=== PATIENT | male | born 1960 | race Caucasian/White ===

== ENCOUNTER 2023-02-20 07:53 | Outpatient (OUT) | payer BC, SELFPAY ==
[2023-02-20 10:02] LABS: Prostate Specific Antigen Dx 7.49 ng/mL (<=4.00)
== END 2023-02-20 07:54 | disposition home or self-care (01) ==
LOC: LAB 07:56
PROVIDERS: PCP Internal Medicine; Visit Provider Urology
DX: R97.20 Elevated prostate specific antigen [PSA] (principal)
CPT/HCPCS: 36415; 84153

== ENCOUNTER 2023-02-22 08:00 | Outpatient (OUT) | payer BC, SELFPAY | END 2023-02-22 08:01 | disposition home or self-care (01) | LOC: VACCLI 04-13 08:54 | PROVIDERS: PCP Internal Medicine; Visit Provider Internal Medicine | DX: Z23 Encounter for immunization (principal) ==

== ENCOUNTER 2023-04-25 07:30 | Outpatient (OUT) | payer BC, SELFPAY ==
[2023-04-25 07:52] LABS: Basophils Absolute Auto 0.1 10^3/uL (0.0-0.1); Eosinophils Absolute Auto 0.2 10^3/uL (0.0-0.7); Eosinophils Percent Auto 3.5 % (0.9-7.0); Hematocrit 44.1 % (42.0-54.0); Hemoglobin 14.2 g/dL (14.0-18.0); Immature Granulocytes Abs Auto 0.02 10^3/uL (0.00-0.03); Immature Granulocytes Pct Auto 0.3 % (0.0-0.5); Lymphocytes Absolute Auto 1.5 10^3/uL (1.2-3.8); Mean Corpuscular HGB Conc 32.2 g/dL (29.9-35.2); Mean Corpuscular Hemoglobin 29.6 pg (25.9-34.0); Mean Corpuscular Volume 91.9 fL (80.0-94.0); Mean Platelet Volume 9.9 fL (9.5-13.5); Monocytes Absolute Auto 0.7 10^3/uL (0.3-0.8); Monocytes Percent Auto 10.8 % (1.7-12.0); Neutrophils Absolute Auto 3.9 10^3/uL (1.4-6.5); Neutrophils Percent Auto 61.4 % (43.0-75.0); Platelet Count 282 10^3/uL (150-450); Red Cell Distribution Width 13.1 % (11.0-15.0); White Blood Count 6.3 10^3/uL (4.0-11.0)
[2023-04-25 08:47] LABS: Alanine Aminotransferase 29 U/L (16-63); Albumin Globulin Ratio 1.1; Albumin Level 3.7 g/dL (3.4-5.0); Alkaline Phosphatase 72 U/L (46-116); Anion Gap 11.3; Aspartate Amino Transferase 18 U/L (15-37); BUN Creatinine Ratio 21.6; Bilirubin Total 0.6 mg/dL (0.2-1.0); Calcium 8.8 mg/dL (8.5-10.1); Carbon Dioxide 32.1 mmol/L (21.0-32.0); Chloride 104 mmol/L (98-107); Chol HDL Ratio 3.1; Cholesterol 163 mg/dL (<=200); Estimated GFR (African America >60 (>=60); Estimated GFR (Non-African Ame >60 (>=60); Globulin 3.5 g/dL; Glucose 96 mg/dL (74-106); HDL Cholesterol 53 mg/dL (40-60); Potassium 4.4 mmol/L (3.5-5.1); Sodium 143 mmol/L (136-145); Total Protein 7.2 g/dL (6.4-8.2); Triglycerides 110 mg/dL (<=150)
[2023-04-25 08:53] LABS: Prostate Specific Antigen Scrn 7.69 ng/mL (<=4.00)
[2023-04-25 09:07] LABS: Estimated Average Glucose 111 mg/dL; Glycohemoglobin A1C 5.5 % (4.5-6.2)
== END 2023-04-25 07:31 | disposition home or self-care (01) ==
LOC: LAB 07:30
PROVIDERS: PCP Internal Medicine; Visit Provider Internal Medicine
DX: Z00.00 Encounter for general adult medical examination without abnormal findings (principal)
CPT/HCPCS: 36415; 80053; 80061; 83036; 84443; 85025; G0103

== ENCOUNTER 2023-06-20 06:54 | Outpatient (OUT) | payer BC, SELFPAY ==
--- OUTSIDE RECORDS SUMMARY | 2023-06-20 06:56 | XMS_ITS | CCD ---
Author Name Unknown Address [address] [place] [address] Organization [facility] Team Providers Care On Air Host Name Role Phone AVERY BARROSO Primary Care Physician MARIO, DR WOOD Admitting Unavailable MARIO, DR WOOD Attending Unavailable DHARMESH, DR MALDONADO Primary Care Unavailable MARIO, DR WOOD Consulting Unavailable DHARMESH, DR MALDONADO Admitting Unavailable BALL, DR MALDONADO Attending Unavailable BALL, DR MALDONADO Primary Care Unavailable DHARMESH, DR MALDONADO Consulting Unavailable ZHENG, DR DAVIS Admitting Unavailable HOY, DR DAVIS Attending Unavailable DHARMESH, DR MALDONADO Primary Care Unavailable ZHENG, DR DAVIS Consulting Unavailable BALL, DR MALDONADO Primary Care Unavailable KATJAE, NOVA Mora Admitting Unavailable KATJAE, NOVA Mora Attending Unavailable ZEPEDA, DR ARON Montgomery Consulting Unavailable ADORNO, DR LEAVITT Consulting Unavailable LETI, HOSSAM Consulting Unavailable DHARMESH, DR MALDONADO Admitting Unavailable DHARMESH, DR MALDONADO Attending Unavailable BALL, DR MALDONADO Primary Care Unavailable MARIO, DR WOOD Admitting Unavailable COFFEY, DR WOOD Attending Unavailable BALL, DR MALDONADO Primary Care Unavailable MARIO, DR WOOD Consulting Unavailable MD Manas Coffey Attending Provider [phone] DO Avery Barroso Primary Care Provider Manas Coffey Admgarrett Unavailable Manas Coffey Attending Unavailable Dharmesh, Avery Primary Care Unavailable Avery Barroso Unavailable Manas COFFEY Attending Unavailable MARIO, Manas Montgomery Attending Unavailable Allergies Allergy Classification Reported Allergen(s) Allergy Type Date of Onset Reaction(s) Facility (1 source) Unable to Assess Drug allergy (disorder) 2 [facility] Repository (1 source) No Known Medication Allergies; Translations: [No Known Medication Allergies] Propensity to adverse reactions (disorder) [facility] Repository (1 source) patient allergy list reviewed by nurse or physicia Propensity to adverse reactions 7 Comment:Done [employer] Other Medications Current Medications Medication Drug Class(es) Dates Sig (Normalized) Sig (Original) atorvastatin 20 mg oral tablet (9 sources) HMG-CoA Reductase Inhibitor Start: 07-10-2022 take 1 tablet by mouth once daily in the evening Atorvastatin Calcium 20 MG 1 tablet Orally Once a day, in evening Jun, Active Start: 07-29-2020 atorvastatin 2 0 mg Tab 20 mg = 1 tab(s), Oral, Refills(s) 0 Start Date: 07/29/20 Status: Ordered omeprazole 40 mg delayed release oral capsule (8 sources) Proton Pump Inhibitor Start: 06-12-2022 take 1 capsule by mouth once daily Completed/Discontinued Medications Medication Drug Class(es) Dates Sig (Normalized) Sig (Original) 24 hr alfuzosin hydrochloride 10 mg extended release oral tablet (9 sources) alpha-Adrenergic Ashish Start: 07-18-2022 take 1 tablet by mouth every twenty-four hours Alfuzosin HCl ER 10 MG 1 tablet immediately after the same meal Orally Once a day for 30 days Jun, Not-Taking/PRN Start: 02-13-2022 take 1 tablet by aristides th once daily alfuzosin 10 mg ER Tab 10 mg = 1 tab(s), Oral, Daily, # 30 tab(s), Refills(s) 11, Pharmacy: [facility]/pharmacy #[id number], 180, cm, 02/13/22 15:01:00 EDT, Height/Length Dosing, 97.2, kg, 02/13/22 15:01:00 EDT, Weight Dosing Start Date: 02/13/22 Status: Ordered Problems Active Problems Problem Classification Problem Date Documented Da te Episodic/Chronic Abdominal pain (4 sources) Unspecified abdominal pain; Translations: [UNSPECIFIED ABDOMINAL PAIN] Onset: 01-13-2022 Episodic Calculus of urinary tract (14 sources) Kidney stone; Translations: [Calculus of kidney] Onset: 01-15-2022 Episodic Disorders of lipid metabolism (20 sources) Hyperlipidemia; Translations: [Hypercholesterolem ia] Onset: 02-06-2014 07-29-2020 Chronic Genitourinary symptoms and ill-defined conditions (2 sources) Nocturia; Translations: [Dysuria] Episodic Hyperplasia of prostate (13 sources) Benign prostatic hypertrophy without outflow obstruction; Translations: [Benign prostatic hyperplasia without lower urinary tract symptoms] Onset: 08-25-2021 Chronic Inflammatory conditions of male genital organs (3 sources) Chronic prostatitis; Translations: [Chronic prostatitis] Onset: 02-13-2022 Chronic Other circulatory disease (1 source) Elevated blood-pressure reading, without diagnosis of hypertension Episodic Other ear and sense organ disorders (1 source) Impacted cerumen; Translations: [Impacted cerumen, bilateral] Episodic Other nutritional; endocrine; and metabolic disorders (1 source) Overweight; Translations: [Overweight] Episodic Other nutritional; endocrine; and metabolic disorders (1 source) Overweight Episodic Other screening for suspected conditions (not mental disorders or infectious disease) (19 sources) Raised prostate specific antigen; Translations: [Elevated prostate specific antigen [PSA]] Onset: 02-10-2022 Episodic Residual codes; unclassified (5 sources) Obstructive sleep apnea (adult) (pediatric); Translations: [OBSTRUCTIVE SLEEP APNEA] Onset: 03-28-2021 Chronic Residual codes; unclassified (9 sources) Obstructive sleep apnea syndrome; Translations: [Obstructive sleep apnea (adult) (pediatric)] Chronic Spondylosis; intervertebral disc disorders; other back problems (9 sources) Low back pain; Translations: [Low back pain] Episodic Thyroid disorders (1 source) Toxic diffuse goiter with no crisis; Translations: [Toxic diffuse goiter without mention of thyrotoxic crisis or storm] Onset: 02-06-2014 Chronic Past or Other Problems Problem Classification Problem Date Documented Da te Episodic/Chronic Acute bronchitis (1 source) Acute bronchitis; Translations: [Acute bronchitis, unspecified] Onset: 03-22-2015 Episodic Bacterial infection; unspecified site (1 source) Bacterial infectious disease; Translations: [Bacterial infection, unspecified, in conditions classified elsewhere and of unspecified site] Onset: 05-08-2016 Episodic Other nutritional; endocrine; and metabolic disorders (1 source) Body mass index 25-29 - overweight; Translations: [Body mass index 27.0-27.9, adult] Onset: 03-26-2017 Episodic Other upper respiratory infections (2 sources) Acute pharyngitis; Translations: [Acute pharyngitis, unspecified] Onset: 05-08-2016 Episodic Unclassified (1 source) Long-term current use of drug therapy; Translations: [Long-term (current) use of other medications] Onset: 04-06-2018 Viral infection (1 source) Herpangina; Translations: [Enteroviral vesicular pharyngitis] Onset: 03-22-2015 Episodic Results Test Name Value Interpretation Reference Range Facility Ambulatory Visit Summaryon 1 05-02-2022 Ambulatory Visit Summary JV BURDICK :1960 Visit Date:03/02/2023 Ambulatory Visit Instructions Your Diagnosis BPH (benign prostatic hyperplasia) Elevated PSA Chronic prostatitis Ureteral stone with hydronephrosis Tests Performed Urnls Dip Stick Auto w/o Microscopy POC 20065 Your Care Team Attending Physician - Manas COFFEY MD Primary Care Physician - AVERY BARROSO DO This Is Your Medications List alfuzosin (alfuzosin 10 mg ER Tab) Contact prescribing physician if questions or concerns atorvastatin (atorvastatin 20 mg Tab) Procedures Performed Transrectal needle biopsy of prostate (08/11/2020). Discharge Vitals Heart Rate (Peripheral) 71 Respiratory Rate 16 Blood Pressure 134/88 Height 180 cm Height 71 in Weight 90 kg Weight 198 lb BMI 27.78 What to do next Scheduled Follow-Up Appointments Sunday 8:00 AM EST With: Manas COFFEY MD Where: [facility] Patient Educationon 03-02-20 23 Patient Education Oncology Prostate Cancer Screening Prostate cancer screening is testing that is done to check for the presence of prostate cancer in men. The prostate gland is a walnut-sized gland that is located below the bladder and in front of the rectum in males. The function of the prostate is to add fluid to semen during ejaculation. Prostate cancer is one of the most common types of cancer in men. Who should have prostate cancer screening? Screening recommendations vary based on age and other risk factors, as well as between the professional organizations who make the recommendations. In general, screening is recommended if: ? You are age 50 to 70 and have an average risk for prostate cancer. You should talk with your health care provider about your need for screening and how often screening should be done. Because most prostate cancers are slow growing and will not cause , screening in this age group is generally reserved for men who have a 10- to 15-year life expectancy. ? You are younger than age 50, and you have these risk factors: ? Having a father, brother, or uncle who has been diagnosed with prostate cancer. The risk is higher if your family member's cancer occurred at an early age or if you have multiple family members with prostate cancer at an early age. ? Being a male who is Black or is of Real or sub-Saharan descent. In general, screening is not recommended if: ? You are younger than age 40. ? You are between the ages of 40 and 49 and you have no risk factors. ? You are 70 years of age or older. At this age, the risks that screening can cause are greater than the benefits that it may provide. If you are at high risk for prostate cancer, your health care provider may recommend that you have screenings more often or that you start screening at a younger age. How is screening for prostate cancer done? The recommended prostate cancer screening test is a blood test called the prostate-specific antigen (PSA) test. PSA is a protein that is made in the prostate. As you age, your prostate naturally produces more PSA. Abnormally high PSA levels may be caused by: ? Prostate cancer. ? An enlarged prostate that is not caused by cancer (benign prostatic hyperplasia, or BPH). This condition is very common in older men. ? A prostate gland infection (prostatitis) or urinary tract infection. ? Certain medicines such as male hormones (like testosterone) or other medicines that raise testosterone levels. A rectal exam may be done as part of prostate cancer screening to help provide information about the size of your prostate gland. When a rectal exam is performed, it should be done after the PSA level is drawn to avoid any effect on the results. Depending on the PSA results, you may need more tests, such as: ? A physical exam to check the size of your prostate gland, if not done as part of screening. ? Blood and imaging tests. ? A procedure to remove tissue samples from your prostate gland for testing (biopsy). This is the only way to know for certain if you have prostate cancer. What are the benefits of prostate cancer screening? ? Screening can help to identify cancer at an early stage, before symptoms start and when the cancer can be treated more easily. ? There is a small chance that screening may lower your risk of dying from prostate cancer. The chance is small because prostate cancer is a slow-growing cancer, and most men with prostate cancer from a different cause. What are the risks of prostate cancer screening? The main risk of prostate cancer screening is diagnosing and treating prostate cancer that would never have caused any symptoms or problems. This is called overdiagnosisand overtreatment. PSA screening cannot tell you if your PSA is high due to cancer or a different cause. A prostate biopsy is the only procedure to diagnose prostate cancer. Even the results of a biopsy may not tell you if your cancer needs to be treated. Slow-growing prostate cancer may not need any treatment other than monitoring, so diagnosing and treating it may cause unnecessary stress or other side effects. Questions to ask your health care provider ? When should I start prostate cancer screening? ? What is my risk for prostate cancer? ? How often do I need screening? ? What type of screening tests do I need? ? How do I get my test results? ? What do my results mean? ? Do I need treatment? Where to find more information ? The [place] [employer]: www.cancer.org ? [place] [employer]: www.auanet.org Contact a health care provider if: ? You have difficulty urinating. ? You have pain when you urinate or ejaculate. ? You have blood in your urine or semen. ? You have pain in your back or in the area of your prostate. Summary ? Prostate cancer is a common type of cancer in men. The prostate gland is located below the bladder and in front of the rectum. This gland adds flu (more content not included)... Normal [facility] Urology Office/Clinic Noteon 03-02-2023 Urology Office/Clinic Note Chief Complaint 1yr PSA HPI Staff 1 year f/u with PSA. Previous dx of elevated PSA, BPH, chronic prostatitis and kidney stone. Current PSA done 02/20/23 is 7.49 and previous done 02/10/22 was 7.95. No longer taking Alfuzosin 10mg ER, stopped in October, states PRW only had him on it temporarily. S/P NEG TRUS/Bx 08/11/20 MRI Prostate 03/13/22- pt called with results Denies kidney stone symptoms. Denies all urinary concerns at this time. History of Present Illness Tests reviewed: Reviewed UA and PSA. I have reviewed the previous health record information and history for this patient from Dr. Coffey. I have reviewed and verified the staff HPI to be accurate for this encounter. There have been no associated fever, chills, flank pain, or blood in the urine. Denies any urinary infections since last encounter. Review of Systems PHQ Score Initial Depression Screen Score: 0 ROS - Provider Constitutional: denies weight loss, denies hot flashes. Eyes: denies eye problems. Gastrointestinal: denies nausea, denies vomiting. Cardiovascular: denies chest pain or angina. Integumentary: no dryness Musculoskeletal: denies musculoskeletal symptoms. ENMT: denies otolaryngeal symptoms. Respiratory: no shortness of breath. Heme/Lymph: denies easy bleeding tendency, denies easy bruising tendency. Psychiatric: no confusion, no anxiety. Genitourinary: See HPI. Physical Exam Vitals & Measurements HR: 71(Peripheral) RR: 16 BP: 134/88 HT: 71 in HT: 180 cm WT: 90 kg WT: 198 lb BMI: 27.78 General Appearance: alert, no distress, well nourished, well developed male. Genitourinary: normal scrotum, normal testes, normal urethra, normal epididymis, normal vas deferens/spermatic cord. Flank Pain: none. Bladder: nonpalpable. Prostate: normal prostate, estimated weight 35 gms, no hard nodule observed. Assessment/Plan 1. BPH (benign prostatic hyperplasia) (N40.0: Benign prostatic hyperplasia without lower urinary tract symptoms) MRI of prostate - prostate volume 84 mL Pt stopped taking Alfuzosin 10mg ER qd, pt states he was only on it temporarily. No urinary concerns. Good stream and no issues with emptying. 2. Elevated PSA (R97.20: Elevated prostate specific antigen [PSA]) PSA: 07/01/20 - 5.3 & 27% 02/10/22 - 7.95 02/20/23 - 7.49 S/p TRUS/bx neg 08/11/20 MRI of prostate 03/13/22 BPH changes. Neg for malignancy. LAZARO today: 35g, benign -Cont to monitor PSA -PSA due in 1 year 3. Chronic prostatitis (N41.1: Chronic prostatitis) UA today trace-intact blood. No recent infections. Asx. Call w/ symptoms. Follow-up With When Contact Information MARIO SPENCER, Manas Montgomery, URL [address] [place] [address]- Additional Instructions: 1 year w/ PSA Patient Education Prostate Cancer Screening I, Lynda Casas, personally scribed for Dr. Coffey on 03/02/2023 08:55:51. . Documentation recorded by the scribe, Lynda Casas, accurately reflects the services(s) I performed and decisions made by me. Authenticated by Dr. Coffey on 03/02/2023 08:57:56. Problem List/Past Medical History Ongoing BPH (benign prostatic hyperplasia) Chronic prostatitis Elevated PSA History of kidney stones Hyperlipidemia Kidney stone Ureteral stone with hydronephrosis Historical No qualifying data Procedure/Surgical History Transrectal needle biopsy of prostate (08/11/2020). Medications alfuzosin 10 mg ER Tab, 10 mg= 1 tab(s), Oral, Daily, 11 refills, Not taking: Hasn't taken since October atorvastatin 20 mg Tab, 20 mg= 1 tab(s), Oral Allergies No Known Allergies No Known Medication Allergies Social History Tobacco Never (less than 100 in lifetime) Tobacco Use:. Never Smokeless Tobacco Use:. Household tobacco concerns: No. Yes, 03/02/2023 Family History Heart disease: Father. Immunizations Vaccine Date Status SARS-CoV-2 (COVID-19) mRNA-1273 vaccine 02/28/2022 Recorded SARS-CoV-2 (COVID-19) mRNA-1273 vaccine 02/18/2021 Recorded SARS-CoV-2 (COVID-19) mRNA-1273 vaccine 05/26/2020 Recorded SARS-CoV-2 (COVID-19) mRNA-1273 vaccine 04/28/2020 Recorded Lab Results Ambulatory Point of Care Results Bilirubin Urine Dipstick: Negative (03/02/23 08:26:00) Blood Urine Dipstick: Trace-intact (03/02/23 08:26:00) Glucose Urine Dipstick: Negative (03/02/23 08:26:00) Ketones Urine Dipstick: Negative (03/02/23 08:26:00) Leukocytes Urine Dipstick: Negative (03/02/23 08:26:00) Nitrite Urine Dipstick: Negative (03/02/23 08:26:00) Protein Urine Dipstick: Negative (03/02/23 08:26:00) Specific [place] Urine Dipstick: 1.020 (03/02/23 08:26:00) Urine Appearance Urine Dipstick: Clear (03/02/23 08:26:00) Urine Color Urine Dipstick: Yellow (03/02/23 08:26:00) Urobilinogen Urine Dipstick: Normal 0.2-1 EU/dl (03/02/23 08:26:00) pH Urine Dipstick: 7 (03/02/23 08:26:00) Normal [facility] Comment on above: Result Comment: Elec tronically Signed By: MARIO SPENCER, Manas Montgomery\.br\Date and Time Signed: 03/02/23 08:58 EDT\.br\Electronically Co-Signed By: Lynda Casas\.br\Date and Time Co-Signed: 03/02/23 08:56 EDT Lab Reportson 02-21-2023 Lab Reports [id number] #1.00TIFF Normal [facility] RAD - MRI Reporton RAD - MRI Report [id number] #1.00CD:127 Normal [facility] MR prostate wo/w conon 03-19 MR prostate wo/w con [facility] [place] [address] MRI Report Signed Patient: Jv Burdick MR#: [id number] : 1960 Acct:[id number] Age/Sex: 61 / M ADM Date: 03/13/22 Loc: MR Room: Type: [facility] Attending Dr: Manas Coffey MD Copies to: Manas Coffey MD Ordering Provider: Manas Coffey MD Date of Service: 03/13/22 MR/MR prostate wo/w con: R97.20 EXAMINATION: MR prostate wo/w con HISTORY: Elevated PSA. COMPARISON: NONE TECHNIQUE: Multiparametric imaging of the prostate gland was performed with IV contrast. FINDINGS: Prostate Dimensions: 6.1 x 4.8 x 5.5 cm Prostate Volume: 84 mL Peripheral Zone: Heterogenous inT2 signal suggestive of prior prostatitis. No suspicious T2 or ADC map abnormality is identified to suggest prostate malignancy. Central/Transitional Zone: BPH changes. Seminal Vesicles: Unremarkable Neurovascular bundles: Unremarkable. Lymphadenopathy: No evidence of lymphadenopathy. Bladder: No focal lesion. Bowel: The visualized bowel is without acute abnormality. Peritoneal Cavity: No free fluid. Bones: No suspicious bony lesion. MR/MR prostate wo/w con IMPRESSION: No MRI evidence of prostate malignancy. BPH changes. Impression dictated by: Ladarius Robertson Jr., D.OErrol03/19/2022 8:25 PM Dictation Location: [place] [address] Transcribed By: [facility] 03/19/222024 Dictated By: Ladarius Robertson Jr, DO 03/19/222018 Signed By: 03/19/222024 Normal [facility] Creatinine (Bld) [Mass/Vol]O rdered By: Manas Coffey on 03-13-2022 Creatinine [Mass/Vol] 0.9 mg/dL 0.6-1.3 [facility] Comment on above: ER/ESD physician is notified/shown all ISTAT results.Critical values may be confirmed by laboratory testing ifdeemed necessary by ER attending doctor. ISTAT XRmarline CREon 03-13-2022 Creatinine [Mass/Vol] 0.9 mg/dL Normal 0.6-1.3 [facility] Comment on above: Result Comment: ER/E SD physician is notified/shown all ISTAT results. Critical values may be confirmed by laboratory testing if deemed necessary by ER attending doctor. Performed By: #### I SCRE #### [address] Point of Care testing , ISTAT GFR ( > 60 Normal [facility] Comment on above: Result Comment: GFR estimated reference range: According to KDOQI guidelines, <60 ml/min/1.73m2 is sufficient to diagnose a patient with chronic kidney disease. PERFORMED BY: [place] [address] PATHOLOGIST ENFORCEMENT MANAGER LENI ARE M.D. Performed By: #### I SCRE #### [address] [place] [address] [facility] Point of Care testing , ISTAT GFR (Non- Am > 60 Normal [facility] Comment on above: Performed By: #### I SCRE #### [facility] [address] [place] [id number] [facility] Point of Care testing , Lab Reportson 03-13-2022 Lab Reports [id number] #1.00CD:127 Normal [facility] No Panel InformationOrdered By: Manas Coffey on 03-13-2022 POC Estimated GFR > 60 [facility] Comment on above: GFR estimated refere nce range: According to KDOQI guidelines, <60 ml/min/1.73m2 is sufficient to diagnose a patient with chronic kidney disease. POC Estimated GFR Non- Amer > 60 [facility] CBC AUTO DIFFon 03-07-2022 BASO # 0.1 103/ul Normal 0.0-0.1 [facility] Comment on above: Performed By: #### C BC #### [facility] [address] [place] [address] Dr. Cherie Nicholas Basophils/100 WBC (Bld) 0.8 % Normal 0.2-2.0 [facility] Comment on above: Performed By: #### C BC #### [facility] [address] [place] [address] Dr. Cherie Nicholas EO # 0.1 103/ul Normal 0.0-0.7 [facility] Comment on above: Performed By: #### C BC #### [facility] [address] [place] [address] Dr. Cherie Nicholas Eosinophils/100 WBC (Bld) 2.3 % Normal 0.9-7.0 [facility] Comment on above: Performed By: #### C BC #### [facility] [address] [place] [address] Dr. Cherie Nicholas Erythrocyte distribution width (RBC) [Ratio] 13.5 % Normal 11.0-15.0 [facility] Comment on above: Performed By: #### C BC #### [facility] [address] [place] [address] Dr. Cherie Nicholas Hematocrit (Bld) [Volume fraction] 43.3 % Normal 42.0-54.0 [facility] Comment on above: Performed By: #### C BC #### [facility] [address] [place] [address] Dr. Cherie Nicholas Hemoglobin (Bld) [Mass/Vol] 14.4 g/dL Normal 14.0-18.0 [facility] Comment on above: Performed By: #### C BC #### [facility] [address] [place] [address] Dr. Cherie Nicholas IG # 0.02 10e3/ul Normal 0.00-0.03 [facility] Comment on above: Performed By: #### C BC #### [facility] [address] [place] [address] Dr. Cherie Nicholas IG % 0.3 % Normal 0.0-0.5 [facility] Comment on above: Performed By: #### C BC #### [facility] [address] [place] [address] Dr. Cherie Nicholas LYMPH # 1.3 103/ul Normal 1.2-3.8 [facility] Comment on above: Performed By: #### C BC #### [facility] [address] [place] [address] Dr. Cherie Nicholas Lymphocytes/100 WBC (Bld) 21.3 % Normal 20.5-60.0 [facility] Comment on above: Performed By: #### C BC #### [facility] [address] [place] [address] Dr. Cherie Nicholas MANUAL DIFF REQ NO Normal [facility] Comment on above: Performed By: #### C BC #### [facility] [address] [place] [address] Dr. Cherie Nicholas MCH (RBC) [Entitic mass] 29.4 pg Normal 25.9-34.0 [facility] Comment on above: Performed By: #### C BC #### [facility] [address] [place] [address] Dr. Cherie Nicholas MCHC (RBC) [Mass/Vol] 33.3 g/dL Normal 29.9-35.2 [facility] Comment on above: Performed By: #### C BC #### [facility] [address] [place] [address] Dr. Cherie Nicholas MCV (RBC) [Entitic vol] 88.5 fL Normal 80.0-94.0 [facility] Comment on above: Performed By: #### C BC #### [facility] [address] [place] [address] Dr. Cherie Nicholas MONO # 0.6 103/ul Normal 0.3-0.8 [facility] Comment on above: Performed By: #### C BC #### [facility] [address] [place] [address] Dr. Cherie Nicholas Monocytes/100 WBC (Bld) 10.1 % Normal 1.7-12.0 [facility] Comment on above: Performed By: #### C BC #### [facility] [address] [place] [address] Dr. Cherie Nicholas NEUT # 4.0 103/ul Normal 1.4-6.5 [facility] Comment on above: Performed By: #### C BC #### [facility] [address] [place] [address] Dr. Cherie Nicholas Neutrophils/100 WBC (Bld) 65.2 % Normal 43.0-75.0 [facility] Comment on above: Performed By: #### C BC #### [facility] [address] [place] [address] Dr. Cherie Nicholas Platelet mean volume (Bld) [Entitic vol] 9.5 fL Normal 9.5-13.5 [facility] Comment on above: Performed By: #### C BC #### [facility] [address] [place] [address] Dr. Cherie Nicholas PLT 296 103/ul Normal 150-450 [facility] Comment on above: Performed By: #### C BC #### [facility] [address] [place] [address] Dr. Cherie Nicholas RBC 4.89 106/ul Normal 4.70-6.10 [facility] Comment on above: Performed By: #### C BC #### [facility] [address] [address] [address] Cherie Nicholas WBC 6.1 103/ul Normal 4.0-11.0 [facility] Comment on above: Performed By: #### C BC #### [facility] [address] [address] [address] Cherie Nicholas GLYCOHEMOGLOBIN A1Con 2021 ADA RECOMMENDATION SEE BELOW Normal [facility] Comment on above: Result Comment: ADA RECOMMENDED LIMIT 4.0 - 6.0 ADA THERAPEUTIC TARGET < 7.0 ACTION SUGGESTED > 7.0 Performed By: #### A 1C #### [facility] [address] [address] [address] Cherie Nicholas Glucose [Mass/Vol] 114 mg/dL Normal [facility] Comment on above: Performed By: #### A 1C #### [facility] [address] [address] [address] Cherie Nicholas HbA1c (Bld) [Mass fraction] 5.6 % Normal 4.5-6.2 [facility] Comment on above: Performed By: #### A 1C #### [facility] [address] [address] [address] Cherie Nicholas LIPID PROFILEon 03-07-2022 CHOL-HDL RATIO NORM SEE BELOW Normal [facility] Comment on above: Result Comment: 3.3 - 4.4 LOW RISK 4.4 - 7.1 AVERAGE RISK 7.1 - 11.0 MODERATE RISK >11.0 HIGH RISK Performed By: #### L IPID, CMP, TSH ####[facility] [address] [id number]. Cherie Nicholas Cholesterol [Mass/Vol] 161 mg/dL Normal <=200 [facility] Comment on above: Performed By: #### L IPID, CMP, TSH ####[facility] [address] [id number]. Cherie Nicholas Cholesterol in HDL [Mass/Vol] 54 mg/dL Normal 40-60 [facility] Comment on above: Performed By: #### L IPID, CMP, TSH ####[facility] [address] [id number]. Cherie Nicholas Cholesterol in LDL [Mass/Vol] 90.6 mg/dL Normal [facility] Comment on above: Performed By: #### L IPID, CMP, TSH ####[facility] [address] [id number]. Cherie Nicholas Cholesterol.total/Antonia sterol in HDL [Mass ratio] 3.0 {ratio} Normal [facility] Comment on above: Performed By: #### L IPID, CMP, TSH ####[facility] [address] [address]Dr. Cherie Nicholas HDL NORMAL > or = 60 mg/dl - LOW CARDIOVASCULAR RISK <40 mg/dl - HIGH CARDIOVASCULAR RISK Normal [facility] Comment on above: Performed By: #### L IPID, CMP, TSH ####[facility] [address] [id number]. Cherie Nicholas LDL CALC NORMAL SEE BELOW Normal [facility] Comment on above: Result Comment: <100 mg/dl OPTIMAL 100 - 129 mg/dl NEAR OR ABOVE OPTIMAL 130 - 159 mg/dl BORDERLINE HIGH 160 - 189 mg/dl HIGH >190 mg/dl VERY HIGH Performed By: #### L IPID, CMP, TSH ####[facility] [address] [id number]. Cherie Nicholas Triglyceride [Mass/Vol] 82 mg/dL Normal <=150 [facility] Comment on above: Performed By: #### L IPID, CMP, TSH ####[facility] [address] [id number]. Cherie Nicholas VLDL CALC 16.4 mg/dL Normal [facility] Comment on above: Performed By: #### L IPID, CMP, TSH ####[facility] [address] [id number]. Cherie Nicholas PROF 14(COMP METB)on 022 Albumin [Mass/Vol] 4.1 g/dL Normal 3.4-5.0 [facility] Comment on above: Performed By: #### L IPID, CMP, TSH #### [facility] [address] [address] [address] Cherie Nicholas Albumin/Globulin [Mass ratio] 1.2 {ratio} Normal [facility] Comment on above: Performed By: #### L IPID, CMP, TSH #### [facility] [address] [address] [address] Cherie Nicholas ALP [Catalytic activity/Vol] 70 U/L Normal 46-116 [facility] Comment on above: Performed By: #### L IPID, CMP, TSH #### [facility] [address] [place] [address] Dr. Cherie Nicholas ALT [Catalytic activity/Vol] 26 U/L Normal 16-63 [facility] Comment on above: Performed By: #### L IPID, CMP, TSH #### [facility] [address] [address] [address] Cherie Nicholas Anion gap [Moles/Vol] 9.2 mmol/L Normal [facility] Comment on above: Performed By: #### L IPID, CMP, TSH #### [facility] [address] [place] [address] Dr. Cherie Nicholas AST [Catalytic activity/Vol] 19 U/L Normal 15-37 [facility] Comment on above: Performed By: #### L IPID, CMP, TSH #### [facility] [address] [address] [address] Cherie Nicholas Bilirubin [Mass/Vol] 0.8 mg/dL Normal 0.2-1.0 [facility] Comment on above: Performed By: #### L IPID, CMP, TSH #### [facility] [address] [place] [address] Dr. Cherie Nicholas Calcium [Mass/Vol] 8.9 mg/dL Normal 8.5-10.[address] [facility] Comment on above: Performed By: #### L IPID, CMP, TSH #### [facility] [address] [address] [address] Cherie Nicholas Chloride [Moles/Vol] 103 mmol/L Normal 98-107 [facility] Comment on above: Performed By: #### L IPID, CMP, TSH #### [facility] [address] [place] [address] Dr. Cherie Nicholas CO2 [Moles/Vol] 29.4 mmol/L Normal 21.0-32.0 [facility] Comment on above: Performed By: #### L IPID, CMP, TSH #### [facility] [address] [address] [address] Cherie Nicholas Creatinine [Mass/Vol] 0.98 mg/dL Normal 0.70-1.30 [facility] Comment on above: Performed By: #### L IPID, CMP, TSH #### [facility] [address] [place] [address] Dr. Cherie Nicholas EGFR-AF ROMANIAN >60 Normal >=60 [facility] Comment on above: Performed By: #### L IPID, CMP, TSH #### [facility] [address] [place] [address] Dr. Cherie Nicholas EGFR-NON AF ROMANIAN >60 Normal >=60 [facility] Comment on above: Performed By: #### L IPID, CMP, TSH #### [facility] [address] [place] [address] Dr. Cherie Nicholas Globulin (S) [Mass/Vol] 3.3 g/dL Normal T [facility] Comment on above: Performed By: #### L IPID, CMP, TSH #### [facility] [address] [place] [address] Dr. Cherie Nicholas Glucose [Mass/Vol] 88 mg/dL Normal 74-106 [facility] Comment on above: Performed By: #### L IPID, CMP, TSH #### [facility] [address] [place] [address] Dr. Cherie Nicholas Potassium [Moles/Vol] 3.6 mmol/L Normal 3.5-5.1 [facility] Comment on above: Performed By: #### L IPID, CMP, TSH #### [facility] [address] [address] [address] Cherie Nicholas Protein [Mass/Vol] 7.4 g/dL Normal 6.4-8.2 [facility] Comment on above: Performed By: #### L IPID, CMP, TSH #### [facility] [address] [place] [address] Dr. Cherie Nicholas Sodium [Moles/Vol] 138 mmol/L Normal 136-[address] [facility] Comment on above: Performed By: #### L IPID, CMP, TSH #### [facility] [address] [place] [address] Dr. Cherie Nicholas Urea nitrogen [Mass/Vol] 26.0 mg/dL Critically high 7.0-18.0 [facility] Comment on above: Performed By: #### L IPID, CMP, TSH #### [facility] [address] [place] [address] Dr. Cherie Nicholas Urea nitrogen/Creatinine [Mass ratio] 26.5 mg/mg Normal [facility] Comment on above: Performed By: #### L IPID, CMP, TSH #### [facility] [address] [place] [address] Dr. Cherie Nicholas TSHon 03-07-2022 TSH 2.584 uIU/mL Normal 0.358-3.740 [facility] Comment on above: Performed By: #### L IPID, CMP, TSH ####[facility] [address] [address]Dr. Cherie Nicholas CBC AUTO DIFFon 01-13-2022 BASO # 0.1 103/ul Normal 0.0-0.1 [facility] Comment on above: Performed By: #### C BC #### [facility] [address] [place] [address] Dr. Cherie Nicholas Basophils/100 WBC (Bld) 0.4 % Normal 0.2-2.0 [facility] Comment on above: Performed By: #### C BC #### [facility] [address] [place] [address] Dr. Cherie Nicholas EO # 0.2 103/ul Normal 0.0-0.7 [facility] Comment on above: Performed By: #### C BC #### [facility] [address] [place] [address] Dr. Cherie Nicholas Eosinophils/100 WBC (Bld) 1.0 % Normal 0.9-7.0 [facility] Comment on above: Performed By: #### C BC #### [facility] [address] [place] [address] Dr. Cherie Nicholas Erythrocyte distribution width (RBC) [Ratio] 12.9 % Normal 11.0-15.0 [facility] Comment on above: Performed By: #### C BC #### [facility] [address] [place] [address] Dr. Cherie Nicholas Hematocrit (Bld) [Volume fraction] 47.0 % Normal 42.0-54.0 [facility] Comment on above: Performed By: #### C BC #### [facility] [address] [place] [address] Dr. Cherie Nicholas Hemoglobin (Bld) [Mass/Vol] 15.3 g/dL Normal 14.0-18.0 [facility] Comment on above: Performed By: #### C BC #### [facility] [address] [place] [address] Dr. Cherie Nicholas IG # 0.04 10e3/ul Critically high 0.00-0.03 [facility] Comment on above: Performed By: #### C BC #### [facility] [address] [place] [address] Dr. Cherie Nicholas IG % 0.3 % Normal 0.0-0.5 [facility] Comment on above: Performed By: #### C BC #### [facility] [address] [place] [address] Dr. Cherie Nicholas LYMPH # 1.2 103/ul Normal 1.2-3.8 [facility] Comment on above: Performed By: #### C BC #### [facility] [address] [place] [address] Dr. Cherie Nicholas Lymphocytes/100 WBC (Bld) 7.9 % Critically low 20.5-60.0 [facility] Comment on above: Performed By: #### C BC #### [facility] [address] [place] [address] Dr. Chreie Nicholas MANUAL DIFF REQ NO Normal [facility] Comment on above: Performed By: #### C BC #### [facility] [address] [place] [address] Dr. Cherie Nicholas MCH (RBC) [Entitic mass] 29.1 pg Normal 25.9-34.0 [facility] Comment on above: Performed By: #### C BC #### [facility] [address] [place] [address] Dr. Cherie Nicholas MCHC (RBC) [Mass/Vol] 32.6 g/dL Normal 29.9-35.2 [facility] Comment on above: Performed By: #### C BC #### [facility] [address] [place] [address] Dr. Cherie Nicholas MCV (RBC) [Entitic vol] 89.5 fL Normal 80.0-94.0 [facility] Comment on above: Performed By: #### C BC #### [facility] [address] [place] [address] Dr. Cherie Nicholas MONO # 0.8 103/ul Normal 0.3-0.8 [facility] Comment on above: Performed By: #### C BC #### [facility] [address] [place] [address] Dr. Cherie Nicholas Monocytes/100 WBC (Bld) 5.1 % Normal 1.7-12.0 [facility] Comment on above: Performed By: #### C BC #### [facility] [address] [place] [address] Dr. Cherie Nicholas NEUT # 13.4 103/ul Critically high 1.4-6.5 [facility] Comment on above: Performed By: #### C BC #### [facility] [address] [place] [address] Dr. Cherie Nicholas Neutrophils/100 WBC (Bld) 85.3 % Critically high 43.0-75.0 [facility] Comment on above: Performed By: #### C BC #### [facility] [address] [address] [address] Cherie Nicholas Platelet mean volume (Bld) [Entitic vol] 9.8 fL Normal 9.5-13.5 [facility] Comment on above: Performed By: #### C BC #### [facility] [address] [address] [address] Cherie Nicholas PLT 363 103/ul Normal 150-450 [facility] Comment on above: Performed By: #### C BC #### [facility] [address] [place] [address] Dr. Cherie Nicholas RBC 5.25 106/ul Normal 4.70-6.10 [facility] Comment on above: Performed By: #### C BC #### [facility] [address] [place] [address] Dr. Cherie Nicholas WBC 15.7 103/ul Critically high 4.0-11.0 [facility] Comment on above: Performed By: #### C BC #### [facility] [address] [place] [address] Dr. Cherie Nicholas ER URINE PROFILEon 2 Bilirubin Ql (U) Negative Normal NEGATIVE [facility] Comment on above: Performed By: #### E RUR ####[facility] [address] [place], [place] [address]DrErrol Nicholas Clarity (U) CLEAR Normal CLEAR [facility] Comment on above: Performed By: #### E RUR ####[facility] [address] [address]DrErrol Nicholas Color (U) LT. YELLOW Normal YELLOW [facility] Comment on above: Performed By: #### E RUR ####[facility] [address] [address]DrErrol Nicholas ERUAHD A micrscopic examination will be performed if indicated. Normal [facility] Comment on above: Performed By: #### E RUR ####[facility] [address] [address]Dr. Cherie Nicholas Glucose Ql (U) Negative Normal NEGATIVE [facility] Comment on above: Performed By: #### E RUR ####[facility] [address] [address]Dr. Cherie Nicholas Hemoglobin Ql (U) Negative Normal NEGATIVE [facility] Comment on above: Performed By: #### E RUR ####[facility] [address] [place], [place] [address]Dr. Cherie Nicholas Ketones Ql (U) Negative Normal NEGATIVE [facility] Comment on above: Performed By: #### E RUR ####[facility] [address] [place], [place] [address]Dr. Cherie Nicholas LEUKOCYTES Negative Normal NEGATIVE [facility] Comment on above: Performed By: #### E RUR ####[facility] [address] [place], [place] [address]Dr. Cherie Nicholas Nitrite Ql (U) Negative Normal NEGATIVE [facility] Comment on above: Performed By: #### E RUR ####[facility] [address] [place], [place] [address]Dr. Cherie Nicholas pH (U) 7.0 [pH] Normal 5-9 [facility] Comment on above: Performed By: #### E RUR ####[facility] [address] [place], [place] [address]Dr. Cherie Nicholas SPEC GRAVITY 1.015 Normal 1.005-<=1.025 [facility] Comment on above: Performed By: #### E RUR ####[facility] [address] [place], [place] [address]Dr. Rehaanaftab Nicholas UA PROTEIN Negative Normal NEGATIVE/ TRACE [facility] Comment on above: Performed By: #### E RUR ####[facility] [address] [place], [place] [address]Dr. Cherie Nicholas UR MICRO IND NOT INDICATED Normal [facility] Comment on above: Performed By: #### E RUR ####[facility] [address] [place], [place] [address]Dr. Cherie Nicholas Urobilinogen Qn (U) 0.2 {Campbell'U}/dL Normal 0.2 - 1. 0 [facility] Comment on above: Performed By: #### E RUR ####[facility] [address] [address]Dr. Cherie Nicholas PROF CHEM 8 (BAS METB)on Anion gap [Moles/Vol] 10.8 mmol/L Normal Th [facility] Comment on above: Performed By: #### B MP #### [facility] [address] [address] [address] Cherie Nicholas Calcium [Mass/Vol] 9.1 mg/dL Normal 8.5-10.1 [facility] Comment on above: Performed By: #### B MP #### [facility] [address] [address] [address] Cherie Nicholas Chloride [Moles/Vol] 103 mmol/L Normal 98-107 [facility] Comment on above: Performed By: #### B MP #### [facility] [address] [address] [address] Cherie Nicholas CO2 [Moles/Vol] 30.0 mmol/L Normal 21.0-32.0 [facility] Comment on above: Performed By: #### B MP #### [facility] [address] [address] [address] Cherie Nicholas Creatinine [Mass/Vol] 1.30 mg/dL Normal 0.70-1.30 [facility] Comment on above: Performed By: #### B MP #### [facility] [address] [address] [address] Cherie Nicholas EGFR-AF ROMANIAN >60 Normal >=60 [facility] Comment on above: Performed By: #### B MP #### [facility] [address] [address] [address] Cherie Nicholas EGFR-NON AF ROMANIAN 56 mL/min/1.73m2 Critically low >=60 [facility] Comment on above: Performed By: #### B MP #### [facility] [address] [address] [address] Cherie Nicholas Glucose [Mass/Vol] 124 mg/dL Critically high 74-106 [facility] Comment on above: Performed By: #### B MP #### [facility] [address] [address] [address] Cherie Nicholas Potassium [Moles/Vol] 3.8 mmol/L Normal 3.5-5.1 [facility] Comment on above: Performed By: #### B MP #### [facility] [address] [address] [address] Cherie Nicholas Sodium [Moles/Vol] 140 mmol/L Normal 136-145 [facility] Comment on above: Performed By: #### B MP #### [facility] [address] [address] [address] Cherie Nicholas Urea nitrogen [Mass/Vol] 24.0 mg/dL Critically high 7.0-18.0 [facility] Comment on above: Performed By: #### B MP #### [facility] [address] [address] [address] Cherie Nicholas Urea nitrogen/Creatinine [Mass ratio] 18.5 mg/mg Normal [facility] Comment on above: Performed By: #### B MP #### [facility] [address] [address] [address] Cherie Nicholas Vital Signs Date Time Vital Sign Value Performing Clinician Facility 04-13-2023 08:30-0500 Body height 182.88 cm [facility] Other [facility] Other 04-13-2023 08:30-0500 Body mass index (BMI) [Ratio] 29.18 kg/m2 [facility] Other [facility] Other 04-13-2023 08:30-0500 Body weight 97.61 kg [facility] Other [facility] Other 04-13-2023 08:30-0500 Diastolic blood pressure 89 mm[Hg] [facility] Other [facility] Other 04-13-2023 08:30-0500 Respiratory rate 12 /min [facility] Other [facility] Other 04-13-2023 08:30-0500 Systolic blood pressure 142 mm[Hg] [facility] Other [facility] Other 03-13-2022 06:48-0500 Body height 180.34 cm DO Avery Barroso Work Phone: [facility] 03-13-2022 06:48-0500 Body weight 86.18 kg DO Avery Barroso Work Phone: [facility] 02-13-2022 15:00-0400 Blood Pressure Location [facility] 02-13-2022 15:00-0400 Diastolic blood pressure 78 mm[Hg] [facility] COFF[facility] 02-13-2022 15:00-0400 Heart rate 68 /min [facility] 02-13-2022 15:00-0400 Respiratory rate 16 /min [facility] 02-13-2022 15:00-0400 Systolic blood pressure 132 mm[Hg] [facility] Encounters Encounter Date Encounter Type Care Provider Facility Start: 03-07-2024 ambulatory Manas COFFEY Facili ty:[facility] [place] Start: 05-28-2023 End: 05-28-2023 ambulatory [facility]ro[facility] Other [facility] Other Start: 05-28-2023 Nursing evaluation o f patient and report [facility] Start: 05-28-2023 Telephone encounter [facility] Barroso [facility] Start: 04-25-2023 End: 04-25-2023 ambulatory Avery Dharmesh Other [facility] Other Start: 04-25-2023 Telephone encounter [facility] Start: 04-13-2023 End: 04-13-2023 ambulatory [facility] Dharm[facility] Other [facility] Other Start: 04-13-2023 Encounter for genera l adult medical examination without abnormal findings A[facility] Start: 04-13-2023 Periodic preventive med est patient 40-64yrs A[facility] Start: 03-26-2023 End: 03-26-2023 ambulatory [facility] Dharmesh Other [facility] Other Start: 03-26-2023 Encounter for genera l adult medical examination without abnormal findings A[facility] Start: 03-26-2023 Telephone encounter [facility] Dharmesh [facility] Start: 03-02-2023 End: 03-03-2023 ambulatory Manas R MARIO Facility:[facility] Start: 10-27-2022 End: 10-27-2022 ambulatory A[facility] Barroso Other [facility] Other Start: 10-27-2022 Encounter for genera l adult medical examination without abnormal findings A[facility] Start: 10-27-2022 Telephone encounter [facility] Start: 10-18-2022 End: 10-18-2022 ambulatory Avery Ball Other [facility] Other Start: 10-18-2022 Encounter for genera l adult medical examination without abnormal findings Avery Ball [facility] Start: 10-18-2022 Telephone encounter Avery Ball [facility] Start: 07-10-2022 End: 07-10-2022 ambulatory Avery Ball Other [facility] Other Start: 07-10-2022 Telephone encounter Avery Ball [facility] Start: 03-13-2022 End: 03-13-2022 ambulatory Manas Coffey Facility:[facility] Start: 03-13-2022 End: 03-13-2022 ambulatory DO Avery Barroso Work Phone: [facility] Work Phone: Start: 03-13-2022 End: 03-13-2022 Patient encounter procedure DO Avery Barroso Work Phone: [facility] [address] [place] Start: 03-11-2022 Encounter for genera l adult medical examination without abnormal findings DR AVERY BARROSO [facility] Start: 03-07-2022 End: 03-08-[address] AVERY BARROSO Facility:[facility] Start: 03-07-2022 End: 03-08-2022 Encounter for general adult medical examination without abnormal findings DR AVERY BARROSO Facility:[facility] Start: 03-03-2022 Adult health examination Avery Barroso Other [facility] Other Start: 02-23-2022 End: 02-24-[address] SUSAN CALZADA Facility:[facility] Start: 02-13-2022 End: 02-13-2022 Patient encounter procedure Manas COFFEY [facility] Start: 02-10-2022 End: 02-11-[address] MANAS COFFEY Facility:[facility] Start: 01-13-2022 End: 01-13-[address] AVERY BARROSO Facility:[facility] Start: 08-23-2021 End: 08-24-[address] MANAS COFFEY Facility:[facility] Start: 03-28-2021 End: 03-29-[address] AVERY BARROSO Facility:[facility] Procedures Date Procedure Procedure Detail Performing Clinician Start: 03-07-[address] MORENA COFFEY Comment on above: Performed By: #### P [facility] #### [facility] [address] [place] [address] Dr. Cherie Nicholas Start: 02-10-[address] MORENA COFFEY Comment on above: Performed By: #### P SAD #### [facility] [address] [address] [address] Cherie Nicholas Start: 08-23-[address] MORENA COFFEY Comment on above: Performed By: #### P SAD #### [facility] [address] [address] [address] Cherie Nicholas Start: 08-11-2020 Transrectal biopsy o f prostate Manas COFFEY Start: 05-03-2018 Screening for malign ant neoplasm of colon Avery Barroso Other Start: 02-06-2014 End: 05-31-2020 General examination of patient Avery Barroso Other Depression screening [place] Barroso Other Screening for malign ant neoplasm of colon Avery Barroso Other Plan of Treatment Date Care Activity Detail Author Start: 03-13-2022 MR Prostate WO and W contrast IV [facility] Start: 03-13-2022 MR prostate wo/w con MR prostate wo/ w con [facility] Immunizations Immunization Date Immunization Notes Care Provider Fa heriberto 02-28-2022 COVID-19 Vaccine Moderna - Documentation Purposes Only Avery Barroso Other [facility] Other 02-18-2021 SARS-CoV-2 (COVID-19 ) mRNA-1273 vaccine Manas COFFEY [facility] 05-26-2020 SARS-CoV-2 (COVID-19 ) mRNA-1273 vaccine Manas COFFEY [facility] 04-28-2020 SARS-CoV-2 (COVID-19 ) mRNA-1273 vaccine Manas COFFEY [facility] Payers Date Payer Category Payer Unknown [id number] 2022 Self-pay [id number] 2019 Unknown [id number] 1960 Unknown [id number] 2.16.84 [id number] 1960 Unknown [id number] 2.16.84 [id number] 1960 Unknown [id number] 2.16.84 [id number] 1960 Unknown [id number] 2.16.84 [id number] 1960 Unknown [id number] 2.16.84 [id number] 1960 Unknown [id number] 2.16.8 [id number] 1960 Unknown [id number] 2.16.8 [id number] 1959 Self-pay [id number] Blue [employer] Blue Shield [id number] Unknown [id number] 2.16.84 [id number] Unknown [id number] 2.16.8 [id number] Social History Date Type Detail Facility Start: 02-13-2022 Tobacco smoking status Never s moked tobacco (finding) [facility] Sex Assigned At Male [facility] Start: 1960 Sex Assigned At Male [facility] Functional Status Date Assessment Result Facility 02-13-2022 Functional Status N/A [facility] Clinical Notes 03-28-2021 to 05-28-2023 Note Date & Type Note Facility 05-28-2023 Evaluation note Encounter Date Diagnosis Assessment Notes Apr, Dysuria (ICD-10 - R30.0) [facility] Other 12-15-2023 Evaluation note* Encounter Date Diagnosis Assessment Notes Treatment Notes Treatment Clinical Notes Mar, Elevated cholesterol (ICD-10 - E78.00) Instructed on diet and exercise with continued statin therapy.Discussed the beneficial effects of lowering cholesterol in reducing the risk for cerebrovascular and cardiovascular disease. Mar, Wellness examination (ICD-10 - Z00.00) Healthy diet and exercise. Reviewed age-appropriate preventive testing recommended. Mar, NO (obstructive sleep apnea) (ICD-10 - G47.33) This patient is aware of the benefits associated with NO: With continued use, the patient reduces the risk for [place], CVA, HTN, cardiac dysrhythmias and sudden cardiac deaths.The patient is also aware of the association between NO and morning headaches, daytime somnolence, fatigue and obesity, which also has been improved with continued use.The patient is compliant with treatment, wearing the equipment every night for greater than 4 hours.The patient is instructed to continue use of the PAP for NO treatment. Mar, Elevated PSA (ICD-10 - R97.20) Chronically elevated PSA - his normal is 7 - f/u S/P TRUS/bx and MRI w/o nodules or path indicating malignancy Mar, Elevated BP without diagnosis of hypertension (ICD-10 - R03.0) This patient is instructed to consume a healthy, low-fat, low-salt diet. They are also encouraged to continue exercise to achieve/maintain a normal BMI. Patient is instructed on home BP measurements: - rest for 5 minutes w/o talking- positioned w/ feet on floor and arm supported- average best 2/3 readings w/ goal < 135/85 Mar, Nocturia (ICD-10 - R35.1) Mar, Benign prostatic hyperplasia with lower urinary tract symptoms (ICD-10 - N40.1) Symptoms tolerable Stopped medication and doing fine f/u Mar, Overweight (BMI 25.0-29.9) (ICD-10 - E66.3) This patient has been instructed on a low-fat, high-fiber diet. They are instructed to reduce calories, portion sizes and snacks. It is recommended that they exercise for 30 minutes, 3-5 times weekly. 15 Dec, 2023 Screening PSA (prostate specific antigen) (ICD-10 - Z12.5) Yearly LAZARO and PSA [facility] Other 11-27-2023 Evaluation note* Encounter Date Diagnosis Assessment Notes Treatment Notes Treatment Clinical Notes Feb, Wellness examination (ICD-10 - Z00.00) [facility] Other 06-30-2023 Evaluation note* Encounter Date Diagnosis Assessment Notes Treatment Notes Treatment Clinical Notes Sep, Wellness examination (ICD-10 - Z00.00) [facility] Other 06-21-2023 Evaluation note* Encounter Date Diagnosis Assessment Notes Treatment Notes Treatment Clinical Notes Sep, Wellness examination (ICD-10 - Z00.00) [facility] Other 10-17-2022 Hospital Discharge instructions Patient Education 02/13/2022 15:25:14 Benign Prostatic Hyperplasia Benign Prostatic Hyperplasia Benign prostatic hyperplasia (BPH) is an enlarged prostate gland that is caused by the normal agingprocess and not by cancer. The prostate is a walnut-sized gland that is involved in the production of semen. It is located in front of the rectum and below the bladder. The bladder stores urine and the urethra is the tube that carries the urine out of the body. The prostate may get bigger as a man gets older. An enlarged prostate can press on the urethra. This can make it harder to pass urine. The build-up of urine in the bladder can cause infection. Back pressure and infection may progress to bladder damage and kidney (renal) failure. What are the causes? This condition is part of a normal aging process. However, not all men develop problems from this condition. If the prostate enlarges away from the urethra, urine flow will not be blocked. If it enlarges toward the urethra and compresses it, there will be problems passing urine. What increases the risk? This condition is more likely to develop in men over the age of 50 years. What are the signs or symptoms? Symptoms of this condition include: Getting up often during the night to urinate. Needing to urinate frequently during the day. Difficulty starting urine flow. Decrease in size and strength of your urine stream. Leaking (dribbling) after urinating. Inability to pass urine. This needs immediate treatment. Inability to completely empty your bladder. Pain when you pass urine. This is more common if there is also an infection. Urinary tract infection (UTI). How is this diagnosed? This condition is diagnosed based on your medical history, a physical exam, and your symptoms. Tests will also be done, such as: A post-void bladder scan. This measures any amount of urine that may remain in your bladder after you finish urinating. A digital rectal exam. In a rectal exam, your health care provider checks your prostate by putting a lubricated, gloved finger into your rectum to feel the back of your prostate gland. This exam detects the size of your gland and any abnormal lumps or growths. An exam of your urine (urinalysis). A prostate specific antigen (PSA) screening. This is a blood test used to screen for prostate cancer. An ultrasound. This test uses sound waves to electronically produce a picture of your prostate gland. Your health care provider may refer you to a specialist in kidney and prostate diseases (urologist). How is this treated? Once symptoms begin, your health care provider will monitor your condition (active surveillance or watchful waiting). Treatment for this condition will depend on the severity of your condition. Treatment may include: Observation and yearly exams. This may be the only treatment needed if your condition and symptoms are mild. Medicines to relieve your symptoms, including: ?Medicines to shrink the prostate. ?Medicines to relax the muscle of the prostate. Surgery in severe cases. Surgery may include: ?Prostatectomy. In this procedure, the prostate tissue is removed completely through an open incision or with a laparoscope or robotics. ?Transurethral resection of the prostate (TURP). In this procedure, a tool is inserted through the opening at the tip of the penis (urethra). It is used to cut away tissue of the inner core of the prostate. The pieces are removed through the same opening of the penis. This removes the blockage. ?Transurethral incision (TUIP). In this procedure, small cuts are made in the prostate. This lessens the prostate's pressure on the urethra. ?Transurethral microwave thermotherapy (TUMT). This procedure uses microwaves to create heat. The heat destroys and removes a small amount of prostate tissue. ?Transurethral needle ablation (TUNA). This procedure uses radio frequencies to destroy and remove a small amount of prostate tissue. ?Interstitial laser coagulation (ILC). This procedure uses a laser to destroy and remove a small amount of prostate tissue. ?Transurethral electrovaporization (TUVP). This procedure uses electrodes to destroy and remove a small amount of prostate tissue. ?Prostatic urethral lift. This procedure inserts an implant to push the lobes of the prostate away from the urethra. Follow these instructions at home: Take bclt-lxr-fdydrjd and prescription medicines only as told by your health care provider. Monitor your symptoms for any changes. Contact your health care provider with any changes. Avoid drinking large amounts of liquid before going to bed or out in public. Avoid or reduce how much caffeine or alcohol you drink. Give yourself time when you urinate. Keep all follow-up visits as told by your health care provider. This is important. Contact a health care provider if: You have unexplained back pain. Your symptoms do not get better with treatment. You develop side effects from the medicine you are taking. Your urine becomes very dark or has a bad smell. Your lower abdomen becomes distended and you have trouble passing your urine. Get help right away if: You have a fever or chills. You suddenly cannot urinate. You feel lightheaded, or very dizzy, or you faint. There are large amounts of blood or clots in the urine. Your urinary problems become hard to manage. You develop moderate to severe low back or flank pain. The flank is the side of your body between the ribs and the hip. These symptoms may represent a serious problem that is an emergency. Do not wait to see if the symptoms will go away. Get medical help right away. Call your local emergency services (911 in the [place] Do not drive yourself to the hospital. Summary Benign prostatic hyperplasia (BPH) is an enlarged prostate that is caused by the normal aging process and not by cancer. An enlarged prostate can press on the urethra. This can make it hard to pass urine. This condition is part of a normal aging process and is more likely to develop in men over the age of 50 years. Get help right away if you suddenly cannot urinate. This information is not intended to replace advice given to you by your health care provider. Make sure you discuss any questions you have with your health care provider. Document Released: 04/16/2006 Document Revised: 03/11/2019 Document Reviewed: 05/21/2017 [employer] Patient Education 2020 [employer]. Follow Up Care 08/31/2021 15:13:53 With:MARIO SPENCER, Manas Montgomery, URL Address: [facility] [address], [place] [address]- [phone] When:02/13/2023 Comments:[facility] 09-16-2022 NoteIndication: Right flank pain. Comparison: None Procedure: Axial images were made from the diaphragms through the symphysis pubis. No oral or IV contrast was given. Dose reduction techniques were achieved by using automated exposure control and/or adjustment of mA and/or kV according to patient size and/or use of iterative reconstruction technique. Findings: Liver/Biliary System: No liver masses. No intra or extrahepatic biliary dilatation. No gallstones or cholecystitis. Pancreas/Spleen: No pancreatic lesions. Pancreatic duct is not dilated. No evidence of pancreatitis. No splenomegaly. Kidneys/Adrenals: A 3 mm stone is seen in the right vesicoureteral junction causing upstream mild right hydronephrosis and hydroureter. Right perirenal fat stranding is seen, most likely due to the right obstructive uropathy. No renal stones are seen. No left hydronephrosis or hydroureter. No adrenal nodules. Aorta/Vessels: No evidence of aortic aneurysm. Evaluation of vessels is limited due to lack of IV contrast. Bowel/Fluid/Nodes: No bowel dilatation. No bowel wall thickening. Colonic diverticulosis with no evidence of diverticulitis. Normal appendix. No ascites or fluid collections. No adenopathy. Lung bases: Clear. Other findings: No aggressive osseous lesions are seen. Pelvis: No pelvic masses or adenopathy. No free fluid seen in the pelvis. Small fat-containing right inguinal hernia. Moderately enlarged prostate measuring 6.0 x 4.1 x 5.4 cm. No bladder wall thickening. Other Findings: No aggressive osseous lesions are seen. Impression: 1. A 3 mm stone in the right vesicoureteral junction causing upstream mild right hydronephrosis and hydroureter. 2. Colonic diverticulosis with no evidence of diverticulitis. Moderately enlarged prostate. Small fat-containing right inguinal hernia. Electronically authenticated by: ELOISA LANDEROS Date: 2022-01-13 20:[address]29-2021 NoteHOME SLEEP STUDY Ordering Physician: Dr. Barroso Procedure Date: 03-28-21 CLINICAL HISTORY: This is a 60 year-old male who is 71 tall, who weighs 204 pounds, has a body mass index of 28.4, who was referred for a home sleep study due to loud snoring. RECORDING TIME: The total recording time was 7 hours and 38 minutes, total monitoring time was 7 hours and 15 minutes. COMPREHENSIVE VENTILATORY MONITORING: The patient had 6 apneas and 135 hypopneas. This led to an apnea/hypopnea index of 19 per hour. The average oxygenation while awake was 92% with a minimum oxygen saturation down to 81%. PULSE DATA: The average pulse rate was 71 bpm, maximum pulse rate was 101 bpm and minimum pulse rate was 60 bpm. SNORING DATA: The patient had 1,853 snoring occurrences. IMPRESSION: 1. This patient does have a mild obstructive sleep apnea and would likely benefit from CPAP titration. 2. This patient would benefit from treatment of any other coexisting medical condition including obesity, insomnia, anxiety or depression. 3. Please correlate clinically.[facility] Future Appointments Appointment Date:02/16/2023 08:00:00 AM Scheduled Provider:Manas COFFEY MD Location:[facility] Appointment Type:URO Office Visit Diagnostic Tests Pending * PSA Total 02/13/22 [facility] evaluation noteNo assessment information available [facility] Work Phone: Evaluation noteNo InformationNort Baravento Other History general Narrative - Reported* Type Description Date Medical History Nephrolithiasis Medical History Obstructive sleep apnea Medical History Hyperlipemia Medical History Elevated PSA Medical History Benign prostatic hyp erplasia with lower urinary tract symptoms Medical History Screening for colon cancer Medical History Low back pain Surgical History TRANSRECTAL ULTRASOUND (TRUS) W ITH BIOPSY 2020 Hospitalization History SEE SURGICAL HX [facility] Other Hospital course Narrative No data available for this section [facility] progress note No data available for this section [facility] Summary Purpose Family History No Family History Records FoundNo Family History Records FoundNo Family History Records Found Advance Directives Advance Directive Response Recorded Date/ Time Advance Directives No February 23, 2022 9:21am Chief Complaint and Reason for Visit Chief Complaint r97.20 Additional Source Comments Patient Care team informatio n (unrecognized section and content) Team Status: Inactive Member Role Status Dates Manas Coffey MD Attending Provider Active Avery Barroso DO Primary Care Provider Active Team Status: Active Member Role Status Dates Avery Barroso DO Primary Care Provider Active (unrecognized sect ion and content) No Status Records FoundNo Status Records FoundNo Status Records Found INFORMATION SOURCE (unrecogn ized section and content) DATE CREATED AUTHOR 03/11/2022 [facility] DATE CREATED AUTHOR AUTHOR'S ORGANIZ ATION 03/19/2022 [facility] DATE CREATED AUTHOR AUTHOR'S ORGANIZ ATION 03/03/2023 [facility] Goals (unrecognized section and content) Goals may be documented in a n alternate section REASON FOR VISIT (unrecogniz ed section and content) RefillRefillRefillLabschecku pLab resultsUA-Blood in urineUA results FOR RECORDS PERTAINING TO PATIENTS WHO ARE OR HAVE BEEN ENROLLED IN A CHEMICAL DEPENDENCY/SUBSTANCEABUSE PROGRAM, SOME INFORMATION MAY BE OMITTED. This clinical summary was aggregated from multiple sources. Caution should be exercised in using it in the provision of clinical care. This summary normalizes information from multiple sources, and as a consequence, information in this document may materially change the coding, format and clinical context of patient data. In addition, data may be omitted in some cases. CLINICAL DECISIONS SHOULD BE BASED ON THE PRIMARY CLINICAL RECORDS. [facility]. provides no warranty or guarantee of the accuracy or completeness of information in this document.
--- NOTE | 2023-06-20 06:58 | XR_ITS ---
The [address] [address] Patient Name: DEMETRICE BURDICK MRN: [id number] date: 1960 Sex: M Assigned Patient Location: [place] Current Patient Location: [place] Accession/Order Number: [id number] Exam Date: 06/20/2023 07:35 Report Date: 06/20/2023 09:23 At the request of: ISRAEL MARTIN Procedure: XR abdomen 1V EXAMINATION: XR abdomen 1V HISTORY: Kidney Stone, Gross Hematuria COMPARISON: XR KUB 08/02/2020 FINDINGS: KIDNEY/URETER - RIGHT: No visible renal or ureteral calcifications. KIDNEY/URETER - LEFT: No visible renal or ureteral calcifications. PELVIS: 3 mm hyperdensity overlying inferior lateral margin of sacrum which could represent a distal ureteral stone. BOWEL: No abnormal dilation or deviation. BONES: No acute abnormality. OTHER: Negative. No abnormal gaseous collections. XR/XR abdomen 1V IMPRESSION: 1. Small distal right ureteral stone versus summation artifact from cortex of lower right sacrum. If there remains clinical concern consider CT abdomen and pelvis without IV contrast for further evaluation. Electronically authenticated by: MÓNICA SOLORIO Date: 06/20/2023 09:23
--- NOTE | 2023-06-20 06:58 | US_ITS ---
The [address] [address] Patient Name: DEMETRICE BURDICK MRN: [id number] date: 1960 Sex: M Assigned Patient Location: US Current Patient Location: [place] Accession/Order Number: [id number] Exam Date: 06/20/2023 07:00 Report Date: 06/20/2023 08:03 At the request of: ISRAEL MARTIN Procedure: US renal BI EXAM: US renal BI HISTORY: . Kidney Stone, Gross Hematuria . COMPARISON: None. TECHNIQUE: Grayscale and color imaging was performed FINDINGS: Scanning of the right kidney demonstrates right kidney measured 12.8 x 5.8 x 6.9 cm. Color-flow is noted. No solid renal cortical masses are noted. There is prominence of the right renal pelvis. Left kidney measures 12.5 x 4.3 x 5.9 cm. Color-flow is noted. No solid renal cortical masses or hydronephrosis is noted. There is a 1.6 x 1.3 cm cyst involving the lower pole of the left kidney. Scanning of the bladder demonstrates the filled bladder to be unremarkable with no masses or bladder wall thickening. Bladder volume was 184 cc. US/US renal BI IMPRESSION: 1. There is a 1.6 cm simple cyst involving the lower pole left kidney. Left kidney is otherwise unremarkable. 2. There is prominence of the right renal pelvis. Findings could be due to an extrarenal pelvis or slight hydronephrosis. 3. Normal-appearing filled bladder. Electronically authenticated by: SERGIO BRONSON Date: 06/20/2023 08:03
[2023-06-20 08:08] LABS: Bilirubin Urine NEGATIVE (NEGATIVE); Blood Urine SMALL (NEGATIVE); Clarity Urine CLEAR (CLEAR); Color Urine LT. YELLOW (YELLOW); Glucose Urine UA NEGATIVE (NEGATIVE); Ketones Urine NEGATIVE (NEGATIVE); Leukocyte Esterase Urine NEGATIVE (NEGATIVE); Nitrite Urine NEGATIVE (NEGATIVE); Protein Urine NEGATIVE (NEG/TRACE); Specific Gravity Urine 1.015 (1.005-1.025); Urobilinogen Urine 0.2 EU/dL (0.2-1.0)
[2023-06-20 08:14] LABS: Urine Microscopic Indicated YES
[2023-06-20 08:16] LABS: Bacteria Urine NONE SEEN #/HPF (NONE SEEN); WBC Urine NONE SEEN #/HPF (NONE SEEN)
[2023-06-20 08:17] LABS: Mucus Urine NONE SEEN (NONE SEEN); Squamous Epithelial Cell Urine FEW #/LPF (NONE/RARE)
== END 2023-06-20 06:55 | disposition home or self-care (01) ==
LOC: US 06:54
PROVIDERS: PCP Internal Medicine; Visit Provider Urology
DX: N20.0 Calculus of kidney (principal); R31.0 Gross hematuria; N28.1 Cyst of kidney, acquired
CPT/HCPCS: 74018; 76775; 81001

== ENCOUNTER 2024-03-04 14:45 | Outpatient (OUT) | payer BC, SELFPAY ==
[2024-03-04 16:57] LABS: Prostate Specific Antigen Dx 8.63 ng/mL (<=4.00)
== END 2024-03-04 14:46 | disposition home or self-care (01) ==
LOC: LAB 14:46
PROVIDERS: PCP Internal Medicine; Visit Provider Urology
DX: R97.20 Elevated prostate specific antigen [PSA] (principal); N40.1 Benign prostatic hyperplasia with lower urinary tract symptoms
CPT/HCPCS: 36415; 84153

== ENCOUNTER 2024-05-21 08:25 | Outpatient (OUT) | payer BC, SELFPAY ==
[2024-05-21 08:39] LABS: Basophils Absolute Auto 0.1 10^3/uL (0.0-0.1); Basophils Percent Auto 1.2 % (0.2-2.0); Eosinophils Absolute Auto 0.2 10^3/uL (0.0-0.7); Eosinophils Percent Auto 3.4 % (0.9-7.0); Hematocrit 45.4 % (42.0-54.0); Hemoglobin 15.1 g/dL (14.0-18.0); Immature Granulocytes Abs Auto 0.02 10^3/uL (0.00-0.03); Immature Granulocytes Pct Auto 0.3 % (0.0-0.5); Lymphocytes Absolute Auto 1.1 10^3/uL (1.2-3.8); Lymphocytes Percent Auto 17.6 % (20.5-60.0); Mean Corpuscular HGB Conc 33.3 g/dL (29.9-35.2); Mean Corpuscular Hemoglobin 30.4 pg (25.9-34.0); Mean Corpuscular Volume 91.3 fL (80.0-94.0); Mean Platelet Volume 9.8 fL (9.5-13.5); Monocytes Absolute Auto 0.7 10^3/uL (0.3-0.8); Monocytes Percent Auto 11.4 % (1.7-12.0); Neutrophils Absolute Auto 3.9 10^3/uL (1.4-6.5); Neutrophils Percent Auto 66.1 % (43.0-75.0); Platelet Count 287 10^3/uL (150-450); Red Blood Count 4.97 10^6/uL (4.70-6.10); Red Cell Distribution Width 12.9 % (11.0-15.0)
[2024-05-21 08:57] LABS: Estimated Average Glucose 111 mg/dL; Glycohemoglobin A1C 5.5 % (4.5-6.2)
[2024-05-21 09:11] LABS: Alanine Aminotransferase 35 U/L (16-63); Albumin Globulin Ratio 1.2; Albumin Level 3.9 g/dL (3.4-5.0); Alkaline Phosphatase 72 U/L (46-116); Anion Gap 10.5; Aspartate Amino Transferase 24 U/L (15-37); BUN Creatinine Ratio 19.8; Bilirubin Total 0.6 mg/dL (0.2-1.0); Calcium 8.7 mg/dL (8.5-10.1); Carbon Dioxide 30.6 mmol/L (21.0-32.0); Chloride 105 mmol/L (98-107); Chol HDL Ratio 2.5; Cholesterol 142 mg/dL (<=200); Estimated GFR (African America >60 (>=60 mL/min/1.73m^2); Estimated GFR (Non-African Ame >60 (>=60 mL/min/1.73m^2); Globulin 3.2 g/dL; Glucose 93 mg/dL (74-106); HDL Cholesterol 56 mg/dL (40-60); LDL Cholesterol Calculated 73.4 mg/dL; Potassium 4.1 mmol/L (3.5-5.1); Sodium 142 mmol/L (136-145); Thyroid Stimulating Hormone 2.608 uIU/mL (0.358-3.740); Total Protein 7.1 g/dL (6.4-8.2); Triglycerides 63 mg/dL (<=150); VLDL CHOLESTEROL 12.6 mg/dL
[2024-05-21 09:45] LABS: Prostate Specific Antigen Scrn 7.74 ng/mL (<=4.00)
== END 2024-05-21 08:26 | disposition home or self-care (01) ==
LOC: LAB 08:26
PROVIDERS: PCP Internal Medicine; Visit Provider Internal Medicine
DX: Z00.00 Encounter for general adult medical examination without abnormal findings (principal)
CPT/HCPCS: 36415; 80053; 80061; 83036; 84443; 85025; G0103

== ENCOUNTER 2025-03-04 13:56 | Outpatient (OUT) | payer BC, SELFPAY ==
[2025-03-04 15:06] LABS: Prostate Specific Antigen Dx 10.49 ng/mL (<=4.00)
== END 2025-03-04 13:57 | disposition home or self-care (01) ==
LOC: LAB 13:56
PROVIDERS: Visit Provider Urology
DX: R97.20 Elevated prostate specific antigen [PSA] (principal)
CPT/HCPCS: 36415; 84153